=== PATIENT | female | born 1960 | race Asian ===

== ENCOUNTER 2017-03-11 10:48 | Emergency (ER) | payer BC, OTHER ==
[~2017-03-11] VITALS: Ht 165.1 cm; Wt 50.0 kg
[2017-03-11 10:49] VITALS: BP 116/72
[2017-03-11] MEDS ORDERED: KETOROLAC 30 MG/1 ML ONE (11:24)
[2017-03-11] MEDS ORDERED: KETOROLAC 30 MG/1 ML IM ONE (11:30)
== END 2017-03-11 12:24 | disposition home or self-care (01) ==
LOC: ED 12:18
DX: G89.29 Other chronic pain (principal); M25.511 Pain in right shoulder; I10 Essential (primary) hypertension
CPT/HCPCS: 73030; 96372; 99284; J1885